=== PATIENT | male | born 1985 | race Caucasian/White ===

== ENCOUNTER → 2022-11-23 | Outpatient (REF) | payer MEDICAID, BC ==
[2022-11-23 18:15] LABS: VITAMIN B12 LEVEL 505 PG/ML (211-911)
== END ==
LOC: M LAB REF 16:49
PROVIDERS: ATTEND Internal Medicine
DX: G93.40 Encephalopathy, unspecified (principal)

== ENCOUNTER → 2022-12-20 | Outpatient (CLI) | payer BC | LOC: M PLAIMG 06:57 | PROVIDERS: ATTEND Internal Medicine | DX: R51.9 Headache, unspecified (principal) ==

== ENCOUNTER → 2023-11-30 | Outpatient (REF) | payer BC | LOC: M LAB REF 16:39 | PROVIDERS: ATTEND Internal Medicine | DX: M25.50 Pain in unspecified joint (principal) ==